=== PATIENT | female | born 1965 | race Caucasian/White ===

== ENCOUNTER 2019-06-06 19:14 | Emergency (ER) | payer OTHER, SELFPAY ==
[2019-06-06 19:16] VITALS: BP 170/92; PULSE 80; RESP 18; TEMP 36.6; O2SAT 99
[2019-06-06] MEDS: CLINDAMYCIN HCL 150 MG CAP 600 MG PO (20:57)
--- NOTE | 2019-06-06 20:58 | ED.DENTAL ---
HPI - Dental/Oral General Chief complaint: Dental/Oral Stated complaint: tooth pain Time Seen by Provider: 06/06/19 20:00 History of Present Illness HPI Narrative: Patient arrives with days weeks months and years of dental decay and pain. She said is been getting worse over the last couple days. She has multiple severe rotten teeth. She was told that with her insurance she has to go to [place] to see the oral surgeon to have her teeth removed. She says she cannot get to [place]. She has her disability for lupus left hip pain and diabetes, and has Medicaid but does not know whether she has Medicare or not. She is allergic to penicillin and so takes clindamycin when she has these dental problems. Her daughter called the charge nurse and said that she does sometimes stretch the truth. She has no cough cold fever chills or other illness. She says she used to do drugs and was really skinny and that is when she ruined her teeth. Complaint: tooth pain Onset (ago): month(s) Relieving factors: nothing Exacerbating factors: chewing Context: history of dental caries and poor dental care Related Data Allergies Allergy/AdvReac Type Severity Reaction Status Date / Time meperidine Allergy Mild itching Verified 06/06/19 19:23 Penicillins Allergy Unknown Hives Verified 06/06/19 19:23 ketorolac AdvReac Vomiting Verified 06/06/19 19:23 Review of Systems Review of Systems: Narrative: CONSTITUTIONAL: Denies fever, chills, or sweats. EYES: Denies visual changes, redness, or discharge. ENT: Denies rhinorrhea, congestion, sore throat, or otalgia.Just dental pain. CARDIOVASCULAR: Denies chest pain, palpitations, or edema. RESPIRATORY: Denies cough or dyspnea. GASTROINTESTINAL: Denies abdominal pain, nausea, vomiting, or diarrhea. GENITOURINARY: Denies dysuria or hematuria. SKIN: Denies rash or itching. MUSCULOSKELETAL: Denies back pain, joint pain, or myalgia. NEUROLOGIC: Denies headache, numbness, or weakness. PSYCHIATRIC: Denies anxiety or depression. [facility] Social History Social History Smoking status: Never smoker Alcohol intake: current Gender identity (if verbalized by the patient): Female Exam Narrative: Exam Narrative: GENERAL: Well-appearing, well-nourished, and in no acute distress. HEAD: Normocephalic, atraumatic. EYES: PERRLA and EOMI. ENT: Nares clear, no rhinorrhea or epistaxis. Mucous membranes moist.Severe caries and broken teeth scattered throughout. No gum swelling or drainage. NECK: Supple. CHEST: Clear to auscultation. No respiratory distress. HEART: Regular rate and rhythm. No murmur heard. Normal peripheral pulses. ABDOMEN: Soft, nontender, nondistended, normal active bowel sounds. EXTREMITIES: Normal range of motion. No edema. SKIN: Warm, dry, no rash. NEURO: No focal deficits. Alert and oriented x3. PSYCH: Normal mood and affect. Const: General: no acute distress and alert Orientation/consciousness: patient oriented x3 Course Vital Signs Vital signs: Vital Signs Temperature 97.9 F 06/06/19 19:16 Pulse Rate 80 06/06/19 19:16 Respiratory Rate 18 06/06/19 19:16 Blood Pressure 170/92 H 06/06/19 19:16 Pulse Oximetry 99 06/06/19 19:16 Temperature 97.9 F 06/06/19 19:16 Pulse Rate 80 06/06/19 19:16 Respiratory Rate 18 06/06/19 19:16 Blood Pressure 170/92 H 06/06/19 19:16 Pulse Oximetry 99 06/06/19 19:16 MDM - Dental/Oral Differential Diagnosis Differential diagnosis: Likely dental caries, toothache and dental abscess Medical Records Attestation: I reviewed the patient's medical records. Discharge Plan Discharge Clinical Impression: Toothache, Dental caries, Dental abscess, Elevated blood pressure reading Patient Disposition: Home, Self-Care Condition: Stable Instructions: Antibiotic Form, Dental Abscess (ED) Additional Instructions: Call the oral surgeon and get your appointment scheduled for
[2019-06-06 21:03] VITALS: BP 164/78; PULSE 82; RESP 18; O2SAT 99
== END 2019-06-06 21:05 | disposition home or self-care (01) ==
PROVIDERS: Emergency Provider Emergency Medicine
DX: K08.89 Other specified disorders of teeth and supporting structures (principal); K04.7 Periapical abscess without sinus; E11.9 Type 2 diabetes mellitus without complications; R03.0 Elevated blood-pressure reading, without diagnosis of hypertension
CPT/HCPCS: 99283; A9270

== ENCOUNTER 2020-02-23 15:10 | Emergency (ER) | payer OTHER, SELFPAY ==
[2020-02-23 15:25] VITALS: BP 151/96; PULSE 86; RESP 16; TEMP 36.1; O2SAT 100
--- NOTE | 2020-02-23 15:26 | ED.DENTAL ---
HPI - Dental/Oral General Chief complaint: Dental/Oral Stated complaint: Tooth Pain Time Seen by Provider: 02/23/20 15:26 Source: patient and RN notes reviewed Mode of arrival: ambulatory Limitations: no limitations History of Present Illness HPI Narrative: 54-year-old female presents with complaints of right lower dental pain for the past 2 days. Mary reports increase in symptoms over the past 24 hours with swelling to RT jaw and increase in pain. Tylenol last this morning at 06:00am and Anbesol without relief. Denies drainage. No fever. RT jaw swelling. No neck swelling. No limitation with speaking or swallowing. Has history of dental caries. Mary reports waiting to get remaining teeth removed, delayed due to COVID-19. Has not seen a dentist recently. No dental trauma. Oral lesion. Exacerbating factors consist of chewing on RT side, eating and drinking cold items. No relieving factors. No dentures or bridges. Tolerating liquids well. The patient reports she have not been diagnosed with COVID-19. The patient reports she is not waiting for the results of a COVID-19 lab test. The patient reports she do not have fever, chills, weakness, or fatigue. The patient reports she do not have a new or worsening cough or shortness of breath. Denies chest pain. The patient reports she do not have any rhinorrhea, congestion, sore throat, loss of taste, nausea, vomiting, abdominal pain, and diarrhea. Denies recent traveling. Denies concerns for COVID-19 or exposures been home with limited outdoor exposure except for essential household needs and return home. At this time, patient is not suspected of having COVID-19. Some parts of this dictation were generated by voice recognition software and may contain typographical and/or grammatical inaccuracies. Related Data Home Medications Medication Instructions Recorded Confirmed gabapentin 02/23/20 insulin glargine [Basaglar KwikPen SUBCUT 02/23/20 U-100 Insulin] insulin lispro [Humalog U-100 02/23/20 Insulin] Allergies Allergy/AdvReac Type Severity Reaction Status Date / Time meperidine Allergy Mild itching Verified 06/06/19 19:23 Penicillins Allergy Unknown Hives Verified 06/06/19 19:23 ketorolac AdvReac Vomiting Verified 06/06/19 19:23 Review of Systems Review of Systems: Narrative: CONSTITUTIONAL: Denies fever, chills, sweats. EYES: Denies visual changes, redness, discharge. ENT: Denies rhinorrhea, congestion, sore throat, otalgia. Complains of RT lower dental pain and jaw swelling. CARDIOVASCULAR: Denies chest pain, palpitations, edema. RESPIRATORY: Denies dyspnea, wheezing, cough. GASTROINTESTINAL: Denies abdominal pain, nausea, vomiting, diarrhea. SKIN: Denies rash or itching. MUSCULOSKELETAL: Denies acute back pain, joint pain, or myalgia. NEUROLOGIC: Denies numbness or focal weakness. PSYCHIATRIC: Denies anxiety or depression. All systems reviewed & are unremarkable except as noted in HPI and below. [facility] Past Medical History Medical History (Updated 02/23/20 @ 15:59 by ELIZABETH Leyva) Bone cancer Mary reports receiving chemo therapy and radiation Cataract Bilateral Deep vein thrombosis Diabetes Lupus (systemic lupus erythematosus) Osteomyelitis Left hip Pulmonary embolism Surgical History Surgical History (Updated 02/23/20 @ 15:59 by ELIZABETH Leyva) History of total left hip arthroplasty History of tubal ligation Family History Family History (Updated 02/23/20 @ 16:02 by ELIZABETH Leyva) Father , Related to motorcycle accident Medical history unknown Mother , Related to heroin overdose Medical history unknown Grandparent Diabetes mellitus Social History Social History (Updated 02/23/20 @ 16:01 by ELIZABETH Leyva) Smoking status: Never smoker Tobacco type: cigarettes Second hand tobacco smoke exposure: Yes Alcohol intake: former Substance use: mahogany
== END 2020-02-23 15:46 | disposition home or self-care (01) ==
PROVIDERS: Emergency Provider Nurse Practitioner Family
DX: K04.7 Periapical abscess without sinus (principal); K02.9 Dental caries, unspecified; E11.9 Type 2 diabetes mellitus without complications; M32.9 Systemic lupus erythematosus, unspecified; Z86.711 Personal history of pulmonary embolism; Z85.830 Personal history of malignant neoplasm of bone; Z92.21 Personal history of antineoplastic chemotherapy; Z92.3 Personal history of irradiation; Z96.642 Presence of left artificial hip joint
CPT/HCPCS: 99213; G0463

== ENCOUNTER 2020-05-14 14:04 | Emergency (ER) | payer MEDICARE, MEDICAID, SELFPAY ==
--- NOTE | ~2020-05-14 | XR_ITS ---
EXAMINATION: XR finger 1st LT min 2V EXAM DATE: 05/14/2020 14:40 INDICATION: Hit left thumb with hammer 5 days ago. TECHNIQUE: Left 1st finger frontal, lateral and oblique projections obtained and reviewed. There i s no prior study for comparison. FINDINGS: There is gas underneath the left 1st nail bed and dorsal to the distal phalanx with severe swelling overlying this. Could indicate infection with gas-forming organism, please clinically corre late. There are no bony erosions identified. Joint spaces are uniform. No radiopaque foreign bodies i dentified. There are no acute fractures identified. IMPRESSION: 1. Scattered gas over the dorsal aspect left 1st finger, swelling. Clinical correlation for infectio n/gas forming organism. 2. No acute osseous findings. Reviewed, dictated and finalized at location A. IMPRESSION: 1. Scattered gas over the dorsal aspect left 1st finger, swelling. Clinical co rrelation for infection/gas forming organism. 2. No acute osseous findings.
[2020-05-14 14:26] VITALS: BP 108/74; PULSE 74; RESP 16; TEMP 37.2; O2SAT 99
--- NOTE | 2020-05-14 14:34 | ED.UPPEXIN ---
HPI - Extremity Injury (Upper) General Chief Complaint: Extremity Injury, Upper Stated Complaint: left thumb injury Time Seen by Provider: 05/14/20 14:20 Source: patient and RN notes reviewed Mode of arrival: ambulatory Limitations: no limitations History of Present Illness HPI narrative: 55-year-old female history of diabetes present she denies any intervention with concern for injury to the first digit of the left hand. Reports 5 days ago she hit the thumb with a hammer, reports she was unable to access healthcare until today. She reports pain, swelling, blistering to the digit. She denies intervention MD complaint: injury to: left and finger Other Extremity Injury: Left: fingers Related Data Home Medications Medication Instructions Recorded Confirmed Humalog Mix 75-25(U-100)Insuln 05/14/20 insulin glargine [Lantus U-100 SUBCUT 05/14/20 Insulin] Allergies Allergy/AdvReac Type Severity Reaction Status Date / Time meperidine Allergy Mild itching Verified 05/14/20 14:21 Penicillins Allergy Unknown Hives Verified 05/14/20 14:21 ketorolac AdvReac Vomiting Verified 05/14/20 14:21 Review of Systems Review of Systems: Narrative: CONSTITUTIONAL: Denies malaise, chills, sweats, or fever. CARDIOVASCULAR: Denies chest pain, palpitations, or edema. RESPIRATORY: Denies cough or dyspnea. SKIN: Reports blistering, bruising to the first digit of the left hand MUSCULOSKELETAL: Reports pain, swelling of the first digit of the left hand NEUROLOGIC: Denies numbness, weakness. All systems reviewed & are unremarkable except as noted in HPI and below PMFSH Past Medical History Medical History (Updated 05/14/20 @ 15:45 by Lorri Abbasi NP) Bone cancer Mary reports receiving chemo therapy and radiation Cataract Bilateral Deep vein thrombosis Diabetes Lupus (systemic lupus erythematosus) Osteomyelitis Left hip Pulmonary embolism Surgical History Surgical History (Updated 02/23/20 @ 15:59 by ELIZABETH Levya) History of total left hip arthroplasty History of tubal ligation Family History Family History (Updated 02/23/20 @ 16:02 by ELIZABETH Leyva) Father , Related to motorcycle accident Medical history unknown Mother , Related to heroin overdose Medical history unknown Grandparent Diabetes mellitus Social History Social History (Updated 02/23/20 @ 16:01 by ELIZABETH Leyva) Smoking status: Never smoker Tobacco type: cigarettes Second hand tobacco smoke exposure: Yes Alcohol intake: former Substance use: never Additional occupation/education comments: disable Gender identity (if verbalized by the patient): Female Comments At time of signature, agree with nursing past medical, surgical, social and family history. There is no relevant family history pertinent to the presenting complaint Exam Narrative: Exam Narrative: GENERAL: Well-appearing, well-nourished, and in no acute distress. HEAD: Normocephalic EYES: PERRLA, conjunctivae clear NECK: Supple. CHEST: Speaks in full sentences. No respiratory distress. HEART: Regular rate and rhythm. Normal and equal peripheral pulses. EXTREMITIES: First digit of left hand has normal strength and sensation. 5/5 strength with digit flexion, extension. Range of motion limited due to pain. Generalized tenderness. Can perform 'okay' sign, 'cross over finger test of index and middle fingers' and 'thumbs up' sign. Normal thumb opposition. Good radial pulse. Distal capillary refill 3 seconds. Digit has marked ecchymosis, large fluctuant abscess. SKIN: Warn, dry, intact, pink. No rash NEURO: Alert and oriented x3. PSYCH: Normal mood and affect Course Course Emergency Course: Patient is aware of, understands and agrees to be transferred to the emergency room. Portions of this record may have been created with voice recognition software Vital Signs Vital signs: Vital Signs Temperature 98.
[2020-05-14] MEDS: ACETAMINOPHEN 500 MG TABLET 1000 MG PO (14:45)
== END 2020-05-14 15:48 | disposition short-term general hospital (02) ==
PROVIDERS: Emergency Provider Nurse Practitioner
DX: L02.512 Cutaneous abscess of left hand (principal); E11.9 Type 2 diabetes mellitus without complications; M32.9 Systemic lupus erythematosus, unspecified; H26.9 Unspecified cataract; Z86.718 Personal history of other venous thrombosis and embolism; Z86.711 Personal history of pulmonary embolism; Z85.830 Personal history of malignant neoplasm of bone
CPT/HCPCS: 26011; 73140; 87070; 87075; 87076; 87147; 87205; 99215; A9270; G0463

== ENCOUNTER 2020-10-07 22:34 | Emergency (ER) | payer MEDICARE, MEDICAID, SELFPAY ==
[2020-10-07 22:47] VITALS: BP 116/88; PULSE 67; RESP 20; TEMP 36.7; O2SAT 100
== END 2020-10-08 02:20 | disposition left against medical advice (07) ==
LOC: ANHED 10-08 01:47
DX: R50.9 Fever, unspecified (principal)
CPT/HCPCS: 99199